=== PATIENT | male | born 2000 | race Caucasian/White ===

== ENCOUNTER 2019-02-07 13:35 | Emergency (ER) | payer MEDICAID ==
[~2019-02-07] VITALS: Ht 180.3 cm; Wt 84.0 kg
== END 2019-02-07 14:25 | disposition home or self-care (01) ==
LOC: ED 14:09
DX: H60.91 Unspecified otitis externa, right ear (principal); H92.02 Otalgia, left ear; F32.9 Major depressive disorder, single episode, unspecified
CPT/HCPCS: 99283